=== PATIENT | female | born 1995 | race Caucasian/White ===

== ENCOUNTER → 2018-03-01 | Outpatient (CLI) | payer BC | LOC: BMCIMAGING 09:15 | PROVIDERS: ATTEND Family Medicine | DX: E05.90 Thyrotoxicosis, unspecified without thyrotoxic crisis or storm (principal) | CPT/HCPCS: 76536-PO ==

== ENCOUNTER → 2018-04-07 | Outpatient (CLI) | payer BC ==
[~2018-04-07] MED LIST: IOPAMIDOL (ISOVUE-300) 100 ML BTL ONE
== END ==
LOC: FIMAGING 14:03
PROVIDERS: ATTEND Family Medicine
DX: R10.33 Periumbilical pain (principal); R23.2 Flushing; R93.3 Abnormal findings on diagnostic imaging of other parts of digestive tract
CPT/HCPCS: Q9967